=== PATIENT | female | born 1955 | race Caucasian/White ===

== ENCOUNTER → 2016-04-18 | Outpatient (CLI) | payer OTHER ==
[2016-04-18 12:51] LABS: HEMOGLOBIN 13.9 gm/dl (12.3-15.3); RED BLOOD COUNT 4.35 M/UL (4.00-5.10); WHITE BLOOD COUNT 9.3 K/UL (4.5-11.0)
[2016-04-18 13:18] LABS: BUN/CREATININE RATIO 19 (0-10)
== END ==
LOC: LAB 11:49
PROVIDERS: Internal Medicine
DX: M15.0 Primary generalized (osteo)arthritis (principal); M79.7 Fibromyalgia; M19.90 Unspecified osteoarthritis, unspecified site
CPT/HCPCS: 36415; 80053; 80061; 82248; 83036; 84550; 85025; 86038; 86039; 86160; 86162; 86200; 86225; 86226; 86235; 86431

== ENCOUNTER → 2016-08-06 | Outpatient (CLI) | payer OTHER | LOC: LAB 10:45 | DX: E11.00 Type 2 diabetes mellitus with hyperosmolarity without nonketotic hyperglycemic-hyperosmolar coma (NKHHC) (principal) | CPT/HCPCS: 36415; 83036 ==

== ENCOUNTER → 2020-02-29 | Outpatient (CLI) | payer OTHER ==
[~2020-02-29] MED LIST: PREDNISONE20 MG PO; ZITHROMAX250 MG PO
== END ==
LOC: HEART 5 07:46
DX: R07.9 Chest pain, unspecified (principal); I08.1 Rheumatic disorders of both mitral and tricuspid valves; R93.1 Abnormal findings on diagnostic imaging of heart and coronary circulation
CPT/HCPCS: 78452; 93306; A9502; J2785

== ENCOUNTER 2020-04-06 23:01 | Emergency (ER) | payer OTHER ==
[2020-04-07 02:39] LABS: BUN/CREATININE RATIO 37 (0-10)
[2020-04-07 02:41] LABS: HEMOGLOBIN 10.7 gm/dl (12.3-15.3); RED BLOOD COUNT 3.92 M/UL (4.00-5.10); WHITE BLOOD COUNT 12.1 K/UL (4.5-11.0)
== END 2020-04-07 03:30 | disposition home or self-care (01) ==
LOC: ER1 23:01
PROVIDERS: Physician Assistant
DX: I10 Essential (primary) hypertension (principal); E11.9 Type 2 diabetes mellitus without complications; Z79.84 Long term (current) use of oral hypoglycemic drugs; Z79.899 Other long term (current) drug therapy
CPT/HCPCS: 36415; 80048; 85025; 96372; 99283; J1885

== ENCOUNTER → 2020-04-28 | Outpatient (CLI) | payer OTHER | LOC: MAMO 08:19 | DX: Z12.31 Encounter for screening mammogram for malignant neoplasm of breast (principal); G60.8 Other hereditary and idiopathic neuropathies; E55.9 Vitamin D deficiency, unspecified; E53.1 Pyridoxine deficiency; E53.8 Deficiency of other specified B group vitamins; E51.9 Thiamine deficiency, unspecified; G25.81 Restless legs syndrome | CPT/HCPCS: 36415; 77063; 77067; 82607; 82728; 82746; 83735; 84207; 84425 ==

== ENCOUNTER → 2020-05-31 | Outpatient (CLI) | payer OTHER | LOC: KOH-I 14:33 | DX: M25.552 Pain in left hip (principal); M25.551 Pain in right hip | CPT/HCPCS: 73522 ==

== ENCOUNTER → 2020-08-18 | Outpatient (CLI) | payer OTHER | LOC: KOH-I 15:12 | DX: M79.671 Pain in right foot (principal) | CPT/HCPCS: 73630 ==

== ENCOUNTER 2020-11-02 15:25 | Emergency (ER) | payer OTHER ==
[2020-11-02 16:31] LABS: HEMOGLOBIN 11.1 gm/dl (12.3-15.3); RED BLOOD COUNT 3.65 M/UL (4.00-5.10); WHITE BLOOD COUNT 8.5 K/UL (4.5-11.0)
[2020-11-02 16:59] LABS: BUN/CREATININE RATIO 10 (0-10)
== END 2020-11-02 18:10 | disposition home or self-care (01) ==
LOC: ER1 15:25
PROVIDERS: Emergency Medicine
DX: I10 Essential (primary) hypertension (principal); R51.9 Headache, unspecified; Z20.822 Contact with and (suspected) exposure to COVID-19
CPT/HCPCS: 71045; 80053; 82550; 82553; 83874; 84484; 85025; 93005; 99284; J1885; J2405; J7030; U0002

== ENCOUNTER → 2020-11-07 | Outpatient (CLI) | payer OTHER | LOC: KOH-I 14:55 | DX: M25.561 Pain in right knee (principal); M25.562 Pain in left knee | CPT/HCPCS: 73560 ==

== ENCOUNTER → 2020-12-23 | Outpatient (CLI) | payer OTHER | LOC: KOH-I 11:28 | DX: R10.32 Left lower quadrant pain (principal) | CPT/HCPCS: 74018 ==

== ENCOUNTER → 2021-04-27 | Outpatient (CLI) | payer OTHER | LOC: KOH-I 13:57 | DX: M79.671 Pain in right foot (principal); M25.561 Pain in right knee; M25.861 Other specified joint disorders, right knee | CPT/HCPCS: 73560; 73610; 73630 ==

== ENCOUNTER → 2021-11-09 | Outpatient (CLI) | payer OTHER | LOC: KOH-I 12:24 | DX: M25.562 Pain in left knee (principal); M25.462 Effusion, left knee | CPT/HCPCS: 73562 ==